=== PATIENT | male | born 1955 | race Caucasian/White ===

== ENCOUNTER 2016-10-17 12:19 | Emergency (ER) | payer OTHER ==
[~2016-10-17 12:19] MED LIST: ASPIRIN EC325 MG PO; COUMADIN 5 MG TA5 MG PO; COUMADIN7.5 M1 PO; COZAAR50 M1 PO; FERROUS SULFAT325 M2 PO; INVOKANA100 M1 PO; KEFLEX500 MG PO; LOPRESSOR 12.12.5 MG PO; LOSARTAN POTAS100 MG PO; LOVENOX 4040 MG/0.4 SC; METFORMIN1000 MG PO; SIMVASTATIN20 MG PO; TAMSULOSIN HYD0.4 MG PO; WARFARIN SODIUM5 M1 PO
[2016-10-17 12:44] VITALS: BP 146/95
--- NOTE | 2016-10-17 13:14 | RADIOLOGY REPORT ---
EXAMINATION: XR SHOULDER, RIGHT CLINICAL INFORMATION: Right shoulder pain. Assess for dislocation COMPARISON: Chest x-ray from 05/14/2016, 01/17/2014, and 12/17/2012 TECHNIQUE: 4 views of the right shoulder. FINDINGS: There is both widening of the acromioclavicular joint and also in increased coracoclavicular distance compatible with an AC separation. These changes appear remote when compared to prior chest x-rays of 2012 and 2013. There is no fracture. There is no dislocation at the glenohumeral joint. The visualized lungs and ribs are intact. 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 Correlation with exam is suggested. No evidence of fracture or glenohumeral dislocation.
[2016-10-17] MEDS ORDERED: NAPROSYN500 M1 PO (13:33)
--- NOTE | 2016-10-17 13:33 | ED UPPER/LOWER EXTREMITY COMPL ---
History of Present Illness General Chief Complaint: Shoulder Injury Stated Complaint: R SHOULDER PAIN, FELL ON THE ICE Source: patient Exam Limitations: no limitations Vital Signs & Intake/Output Vital Signs & Intake/Output Vital Signs Date Time Temp Pulse Resp B/P Pulse O2 O2 Flow FiO2 Ox Delivery Rate 10/17 1244 97.8 88 20 146/95 97 Room Air Allergies Coded Allergies: NO KNOWN ALLERGIES (05/14/16) Triage Note: PT PRESENTS TO ER C/O OF RIGHT SHOULDER PAIN S/P SLIP AND FALL ON ICE. PT DENIES STRIKING HEAD. PT ABLE TO MOVE RIGHT ARM BUT STATES PAIN IS WORSE WITH MOVEMENT. Triage Nurses Notes Reviewed? yes HPI: This patient is a 61-year-old male who presented to the emergency department today for right shoulder pain. The patient reported that he fell backwards on ice. He denied hitting his head or losing consciousness. He reported that he is having pain in his right shoulder only with movement. He reported decreased movement and pain that is an 8 out of 10, nonradiating, and his right shoulder with movement. Patient reported that he did not take any medication for the pain prior to arrival in the emergency department. He denied any numbness or tingling in his extremities. He denied any head pain or neck pain. No chest pain, difficulty breathing, or abdominal pain. (AKASH COOK,STEPHAN) Reconcile Medications Aspirin E.c. (Ecotrin) 325 MG TAB 1 TAB PO DAILY HEART (Reported) Canagliflozin (Invokana) 100 MG TABLET 1 TAB PO DAILY diabetes (Reported) Ferrous Sulfate 325 MG TABLET.DR 325 MG PO DAILY ANEMIA Losartan Potassium (Cozaar) 50 MG TABLET 1 TAB PO DAILY HTN METFORMIN HCL (Metformin) 1,000 MG TABLET 1 TAB PO BID DIABETES (Reported) Naproxen (Naprosyn) 500 MG TABLET 1 TAB PO BID PRN PAIN AND INFLAMMATION Simvastatin (Zocor) 20 MG TAB 1 TAB PO QPM CHOLESTEROL (Reported) TAMSULOSIN HCL (Tamsulosin Hydrochloride) 0.4 MG CAP.ER.24H 1 CAP PO DAILY PROSTATE (Reported) Warfarin Sodium 5 MG TABLET 1 TAB PO DAILY BLOOD THINNER (Reported) Warfarin Sodium 5 MG TABLET 1 TAB PO DAILY BLOOD THINNER (SABINO SKELTON,FREDRICK) Past History Travel History Traveled to [place] past 21 day No Medical History Any Pertinent Medical History? see below for history Neurological: NONE EENT: NONE Cardiovascular: hypertension, myocardial infarction, CABG AORTIC VALVE REPLACEMENT Respiratory: COPD, emphysema Gastrointestinal: NONE, Colon polyps- last colonoscopy in 2011 had an inflammatory pseudopolyp a colonsocopy in 2010 removed a 3cm TV adenoma Hepatic: NONE Renal: benign prost hyperplasia Musculoskeletal: NONE Psychiatric: NONE Endocrine: NIDDM Blood Disorders: NONE Cancer(s): NONE FLOSSER/Reproductive: NONE History of MRSA: No History of VRE: No History of CDIFF: No Influenza Vaccine: 05/15/16 Surgical History Surgical History: DOUBLE BYPASS, MECHANICAL AORTIC VAVLE REPALCEMENT Psychosocial History Who do you live with Patient and family Services at Home None What is your primary language Guyanese Tobacco Use: Never used Family History Family History, If Any: FATHER, ; Cause: Heart attack. FH: asthma MOTHER FH: diabetes mellitus Hx Contributory? No (STEPHAN BUSTOS PA-C) Review of Systems Review of Systems Constitutional: Reports: no symptoms. EENTM: Reports: no symptoms. Respiratory: Reports: no symptoms. Cardiovascular: Reports: no symptoms. Gastrointestinal/Abdominal: Reports: no symptoms. Musculoskeletal: Reports: see HPI. Skin: Reports: no symptoms. Neurological/Psychological: Reports: no symptoms. All Other Systems: Reviewed and Negative (STEPHAN BUSTOS PA-C) Physical Exam Physical Exam General Appearance: well developed/nourished, no apparent distress, alert, awake Comments: Well-developed well-nourished person in no acute distress HEENT: Head normocephalic/atraumatic, moist mucous membranes Neck: Supple, no lymphadenopathy. No midline tenderness Back: Normal gait Respiratory: No respiratory distress. Speaking in full sentences Right upper extremity: No effusions overlying erythema or ecchymosis to the joint space. No bony or muscular deformities noted. Full range of motion at the elbow and wrist. Range of motion at the shoulder limited due to pain. Tenderness to palpation over the acromioclavicular joint space. Radial brachial pulses 2+ and strong. Capillary refill less than 2 seconds Neuro: Alert and oriented x3 Psych: Mood affect normal, normal memory normal judgment. Skin: Warm and dry, no rash on exposed skin (STEPHAN BUSTOS PA-C) Progress Differential Diagnosis: arterial insufficiency, cellulitis, compartment syndrome , contusion, dislocation, DVT, fracture, septic arthritis, sprain, tendon injury Plan of Care: Orders Procedure Date/time Status Durable Medical Equipment 10/17 1319 Active Departure Departure Disposition: HOME OR SELF CARE Condition: Stable Clinical Impression Primary Impression: Acromioclavicular joint separation Qualifiers: Encounter type: initial encounter Laterality: right Qualified Code: S43.101A - Unspecified dislocation of right acromioclavicular joint, initial encounter Referrals: MICHA SKELTON,ELIE Rogers (PCP/Family) BERNICE DAWSON MD Additional Instructions: Please use the shoulder immobilizer provided to you in the emergency department for extra support of your shoulder. You may apply ice or heat to the affected area as needed. Take naproxen as prescribed for pain and inflammation. Avoid any heavy lifting. Please call the orthopedist whose information has been provided to you in this packet for further evaluation and management. Return for any worsening symptoms or concerns. Departure Forms: Customer Survey General Discharge Information Prescriptions: Current Visit Scripts Naproxen (Naprosyn) 1 TAB PO BID PRN PAIN AND INFLAMMATION #20 TAB (AKASH COOK,STEPHAN) PA/CARDIOPULMONARY TECHNICIAN AND EEG TECH Co-Sign Statement Statement: ED Attending supervision documentation- [] I saw and evaluated the patient. I have also reviewed all the pertinent lab results and diagnostic results. I agree with the findings and the plan of care as documented in the PA's/CARDIOPULMONARY TECHNICIAN AND EEG TECH's documentation. [X] I have reviewed the ED Record and agree with the PA's/CARDIOPULMONARY TECHNICIAN AND EEG TECH's documentation. [] Additions or exceptions (if any) to the PAs/CARDIOPULMONARY TECHNICIAN AND EEG TECH's note and plan are summarized below: [] (SABINO SKELTON,FREDRICK)
== END 2016-10-17 14:03 ==
LOC: ERH 12:19
DX: S43.101A Unspecified dislocation of right acromioclavicular joint, initial encounter (principal); W00.0XXA Fall on same level due to ice and snow, initial encounter
CPT/HCPCS: 73030-RT